=== PATIENT | male | born 1980 | race Caucasian/White ===

== ENCOUNTER 2018-10-27 12:59 | Emergency (ER) | payer OTHER ==
[~2018-10-27] VITALS: Ht 170.2 cm; Wt 63.6 kg
--- NOTE | 2018-10-27 14:27 | REP ---
RIGHT ANKLE, FOUR VIEWS: HISTORY: Injury. There is a no acute fracture or dislocation. The joint space is normal in appearance. IMPRESSION: There is no acute fracture or dislocation. Electronically Signed by Mckinley Harris MD 10/27/2018 02:30 P
[2018-10-27] MEDS ORDERED: NAPR-837 PO (16:29)
[2018-10-27] MEDS ORDERED: NAPROXEN 250 MG TAB PO ONE (16:30)
[2018-10-27 16:38] VITALS: BP 148/62
== END 2018-10-27 16:42 | disposition home or self-care (01) ==
LOC: M ED 12:59
DX: S93.411A Sprain of calcaneofibular ligament of right ankle, initial encounter (principal); X58.XXXA Exposure to other specified factors, initial encounter; Y92.89 Other specified places as the place of occurrence of the external cause; Y93.9 Activity, unspecified; Y99.0 Civilian activity done for income or pay; Z87.81 Personal history of (healed) traumatic fracture; Z72.0 Tobacco use

== ENCOUNTER → 2021-02-21 | Outpatient (CLI) | payer OTHER ==
[~2021-02-21] MED LIST: NAPR-837 PO
--- NOTE | 2021-02-21 10:27 | REPVR ---
PROCEDURE INFORMATION: Exam: MR Lumbar Spine Without Contrast Exam date and time: 02/21/2021 7:44 AM Age: 40 years old Clinical indication: Low back pain; Additional info: Lbp, R/O disc herniation TECHNIQUE: Imaging protocol: Multiplanar magnetic resonance images of the lumbar spine without intravenous contrast. COMPARISON: No relevant prior studies available. FINDINGS: Vertebrae: There is mild reversal the normal cervical lordosis. There is no fracture. Spinal cord: Normal signal. No cord compression. L1-L2: There is shallow disc bulging with a left paracentral annular tear. There is mild facet hypertrophy. The spinal canal and neural foramina are patent. L2-L3: There is shallow disc bulging asymmetric to left. There is mild facet hypertrophy. The spinal canal and neural foramina are patent. L3-L4: There is shallow disc bulging with a left paracentral annular tear. There is mild facet and ligamentous hypertrophy. There is mild canal stenosis. The neural foramina are patent. L4-L5: There is shallow disc bulging. There is mild facet hypertrophy. The spinal canal and neural foramina are patent. L5-S1: There is shallow disc bulging. There is mild facet hypertrophy. The spinal canal and neural foramina are patent. Soft tissues: Unremarkable. IMPRESSION: Mild degenerative disc disease and spondylosis. At L3/4, changes contribute to mild acquired canal stenosis. Electronically signed by: Bianca Dickson On 02/21/2021 10:26:40 AM
== END ==
LOC: M RAD 06:57
PROVIDERS: ATTEND Physician Assistant
DX: R93.7 Abnormal findings on diagnostic imaging of other parts of musculoskeletal system (principal); M54.5 Low back pain

== ENCOUNTER → 2021-06-26 | Outpatient (CLI) | payer OTHER | LOC: M PLAIMG 10:12 | PROVIDERS: ATTEND Physician Assistant | DX: R25.8 Other abnormal involuntary movements (principal) ==